=== PATIENT | female | born 1955 | race Caucasian/White ===

== ENCOUNTER 2022-02-22 02:41 | Emergency (ER) | payer MEDICARE, SELFPAY ==
[2022-02-22 02:42] VITALS: BP 160/77; PULSE 105; RESP 18; TEMP 35.7; O2SAT 98; BMI 29.9
--- NOTE | 2022-02-22 02:47 | EX.ED.DYSGE1 ---
HPI History of Present Illness Chief Complaint: Allergic Reaction Informant: patient Narrative Narrative: 2 weeks ago the patient stated that she received numerous bug bites to her lower legs. She states that she was cleaning out her rental house. States that she was using a lot of chemicals but she does not normally use paints. She also was doing a lot of yard work. Last Monday she went to her primary care doctor because she began to develop a lot of itching and her hands were swollen. She was placed on prednisone taper. She states that now she is at the end of the taper and her symptoms are returning. She has tried some Benadryl without relief. She denies any difficulty swallowing or breathing. PFSH PFSH Medical History no medical history Home Medications prednisone 20 mg tablet See Rx Instructions .Route .COMPLEX #24 TABLETS 02/22/22 [Rx Last Taken Unknown] Allergy/AdvReac Type Severity Reaction Status Date / Time Penicillins [PCN] Allergy Shortness Verified 02/22/22 02:44 of breath Social History Smoking Status: Never smoker ROS ROS ED Constitutional Constitutional ED: Denies chills or weight loss Eyes Eyes: Denies change in vision or diplopia ENT ENT ED: Denies ear pain, rhinorrhea or sore throat Cardiovascular Cardiovascular: Denies chest pain, orthopnea, palpitations or racing heartbeat Respiratory/Chest Respiratory/Chest: Denies cough, dyspnea or orthopnea Gastrointestinal Gastrointestinal: Denies abdominal pain, diarrhea, nausea or vomiting Genitourinary Genitourinary ED: Denies dysuria, hematuria or urinary frequency Musculoskeletal Musculoskeletal: Denies arthralgias or myalgias Integumentary Reports rash and other Details: itching ; Denies abscess Neurologic Neurologic: Denies headache(s) or weakness Psychiatric Psychiatric: Denies anxiety, depression, suicidal ideation or suicidal thoughts Endocrine Endocrinology: Denies polydipsia, polyphagia or polyuria Allergic/Immunologic Allergic/Immunologic ED: Denies mouth swelling, tongue swelling or urticaria EXAM Physical Exam Const Vital Signs: 02/22/22 02:42 Temperature 96.3 F L Temperature Source Temporal Pulse Rate 105 H Respiratory Rate 18 Blood Pressure 160/77 H Blood Pressure Mean 104 Pulse Ox 98 Positive well nourished and well developed General Appearance ED: well developed HEENT Reports normocephalic, head/scalp atraumatic and moist mucous membranes Eyes PERRL and EOMs intact bilaterally Neck no lymphadenopathy, supple and no JVD Resp normal respiratory effort and clear to auscultation bilaterally Cardio regular rate, regular rhythm and no murmurs GI normal to inspection, nondistended, normoactive bowel sounds and non-tender Palpation: soft Back/Spine no CVA tenderness and normal ROM Extremity normal to inspection General Extremety ED: Negative for edema General Extremity: Negative for edema Neuro oriented x3 and CN's II-XII intact bilaterally Sensorium / Orientation: alert Motor Exam: strength 5/5 throughout Psych mental status grossly normal Mood & Affect: Negative for depressed or tearful Skin no wounds Skin Narrative: OurThere is a dry skin like rash of the bilateral hands. There is some mild erythema around the neck. Healing bug bites to the distal lower extremities. MDM MDM MDM Narrative Medical decision making narrative: I discussed with the patient to add in some Pepcid. We talked about doing a shot of Kenalog but she would prefer some additional prednisone so we will write her that on a tapering dose. Discharge Plan Triage Chief Complaint: Allergic Reaction ED Provider: Freedom Torres Dx/Rx/DC Orders Clinical Impression: Allergic reaction, Itching Instructions: ED Allergic Reaction Local Other Prescriptions: New prednisone 20 mg tablet See Rx Instructions .ROUTE .COMPLEX Qty: 24 0RF Rx Instructions: 3 tabs p.o. daily days 1 through 4, then 2 tabs p.o. daily days 5 through 8, then 1 tab p.o. daily day 9 through 12 Primary Care Provider: Edy Zavala Referrals: Edy Zavala MD [Primary Care Provider] - As Needed Disposition Disposition: Home, Self Care
[2022-02-22] MEDS: predniSONE 20 MG Tablet 60 MG PO (03:10)
[2022-02-22] MEDS: Famotidine 20 MG Tablet 40 MG PO (03:10)
== END 2022-02-22 03:15 | disposition home or self-care (01) ==
PROVIDERS: Emergency Provider Emergency Medicine; PCP Family Medicine; Visit Provider Emergency Medicine
DX: T78.40XA Allergy, unspecified, initial encounter (principal)
CPT/HCPCS: 99283

== ENCOUNTER 2023-01-03 20:03 | Emergency (ER) | payer MEDICARE, SELFPAY ==
[2023-01-03 20:04] VITALS: BP 141/106; PULSE 90; RESP 15; TEMP 36.4; O2SAT 99; BMI 31.1
--- NOTE | 2023-01-03 20:51 | EDS_ITS ---
HPI History of Present Illness Chief Complaint: Eye Problem Informant: patient and spouse/S.O. Narrative Narrative: 67-year-old female presenting to the emergency department with the chief complaint of bilateral eye itching and drainage. Symptoms have been present for the past several weeks. She has a hard contact lens wear has not worn them for the past several days. Last week she saw a nurse practitioner who placed her on prednisone for burst dosing. She states she has also been using some Visine drops. She thinks the prednisone made some difference but not much. She denies crusting of the eyelashes in the morning. No significant sneezing or coughing or rhinorrhea. No fevers. No significant eye pain. No foreign body sensation. Vision has not significantly changed [facility] Medical History Allergies Home Medications prednisone 20 mg tablet See Rx Instructions .Route .COMPLEX #24 TABLETS 02/22/22 [Rx Last Taken Unknown] olopatadine 0.1 % eye drops (Pataday Twice Daily Relief) 1 drp EACH EYE BID #5 mL 01/03/23 [Rx Last Taken Unknown] prednisone 10 mg tablet 10 mg PO DAILY #48 TABLETS 01/03/23 [Rx Last Taken Unknown] Allergy/AdvReac Type Severity Reaction Status Date / Time Penicillins [PCN] Allergy Shortness Verified 01/03/23 20:08 of breath Social History Smoking Status: Never smoker ROS ROS ED Constitutional Constitutional ED: Denies chills, fever(s) or weight loss Eyes Eyes: Reports other Details: Eye redness and drainage ; Denies change in vision or diplopia ENT ENT ED: Denies ear pain, rhinorrhea or sore throat Cardiovascular Cardiovascular: Denies chest pain, orthopnea, palpitations or racing heartbeat Respiratory/Chest Respiratory/Chest: Denies cough, dyspnea or orthopnea Gastrointestinal Gastrointestinal: Denies abdominal pain, diarrhea, nausea or vomiting Genitourinary Genitourinary ED: Denies dysuria, hematuria or urinary frequency Musculoskeletal Musculoskeletal: Denies arthralgias or myalgias Integumentary Denies abscess or rash Neurologic Neurologic: Denies headache(s) or weakness Psychiatric Psychiatric: Denies anxiety, depression, suicidal ideation or suicidal thoughts Endocrine Endocrinology: Denies polydipsia, polyphagia or polyuria Allergic/Immunologic Allergic/Immunologic ED: Denies mouth swelling, tongue swelling or urticaria EXAM Physical Exam Const Vital Signs: 01/03/23 20:04 Temperature 97.5 F L Temperature Source Temporal Pulse Rate 90 Respiratory Rate 15 Blood Pressure 141/106 H Blood Pressure Mean 117 Pulse Ox 99 Oxygen Delivery Method Room Air Positive well nourished and well developed General Appearance ED: well developed HEENT Reports normocephalic, head/scalp atraumatic and moist mucous membranes Eyes PERRL and EOMs intact bilaterally Eyes Narrative: There is some mild conjunctival injection. No corneal abrasions noted or ulcers. No foreign body seen with eversion of eyelids. There is no matting of the eyelids. There are no allergic shiners no significant periorbital edema. Neck no lymphadenopathy, supple and no JVD Resp normal respiratory effort and clear to auscultation bilaterally Cardio regular rate, regular rhythm and no murmurs GI normal to inspection, nondistended, normoactive bowel sounds and non-tender Palpation: soft Back/Spine no CVA tenderness and normal ROM Extremity normal to inspection General Extremety ED: Negative for edema General Extremity: Negative for edema Neuro oriented x3 and CN's II-XII intact bilaterally Sensorium / Orientation: alert Motor Exam: strength 5/5 throughout Psych mental status grossly normal Mood & Affect: Negative for depressed or tearful Skin no rashes or lesions noted and no wounds MDM MDM MDM Narrative Medical decision making narrative: Visual acuity checked. Patient will be started on a tapering dose of prednisone as well as Pataday eyedrops. I have advised her not to use her hard contacts until she sees her eye doctor. Would also consider adding in a Zyrtec or Claritin. Discharge Plan Triage Chief Complaint: Eye Problem ED Provider: Freedom Torres Dx/Rx/DC Orders Clinical Impression: Acute allergic conjunctivitis of both eyes Instructions: ED Conjunctivitis, Allergic Prescriptions: New olopatadine [Pataday Twice Daily Relief] 0.1 % drops 1 drp EACH EYE BID Qty: 5 0RF Rx Instructions: separate doses by at least 6-8 hours prednisone 10 mg tablet 10 mg PO DAILY Qty: 48 0RF Rx Instructions: 6 po qd x 3 days, 4 po qd x 3 days, 2 po qd x 3 days, 1 po qd x 3 days No Action prednisone 20 mg tablet See Rx Instructions .ROUTE .COMPLEX Qty: 24 0RF Rx Instructions: 3 tabs p.o. daily days 1 through 4, then 2 tabs p.o. daily days 5 through 8, then 1 tab p.o. 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 Disposition Disposition: Home, Self Care
[2023-01-03 21:06] VITALS: BP 139/79; PULSE 92; RESP 18; O2SAT 96
== END 2023-01-03 21:07 | disposition home or self-care (01) ==
PROVIDERS: Emergency Provider Emergency Medicine; PCP Family Medicine; Visit Provider Emergency Medicine
DX: H10.13 Acute atopic conjunctivitis, bilateral (principal)
CPT/HCPCS: 99283

== ENCOUNTER → 2024-01-10 | Outpatient (CLI) | payer MEDICARE, SELFPAY ==
[2024-01-10 12:16] LABS: Absolute Lymphocyte Count 3.02 X10^3/uL (0.83-4.51); Absolute Neutrophil Count 7.5 X10^3/uL (2.0-7.7); Basophil# 0.06 X10^3/uL; Basophil% 0.5 % (0-1); Eosinophil# 0.04 X10^3/uL; Eosinophils% 0.4 % (0-5); Hematocrit 46.5 % (37-47); Hemoglobin 14.8 g/dL (12.0-15.0); Lymphocyte # 3.02 X10^3/ul (0.83-4.51); Lymphocyte % 26.8 % (19-41); Mean Corp Hgb Conc 31.8 g/dL (32-36); Mean Corpuscular Hgb 27.9 pg (27.0-32.0); Mean Corpuscular Volume 87.7 fL (81-99); Mean Platelet Vol. 10.8 fl (6.2-12.0); Monocyte# 0.58 X10^3/uL; Monocyte% 5.2 % (0-10); NRBC Flagged by Analyzer 0 % (0-5); Neutrophil # 7.53 X10^3/uL (2.7-7.7); Neutrophil % 66.8 % (47-70); Platelet Count 402 K/mm3 (150-450); RBC Distribution Width CV 14.1 % (11.6-14.6); RBC Distribution Width SD 45.4 fl (35.1-43.9); White Blood Count 11.3 K/mm3 (4.4-11.0)
[2024-01-10 13:11] LABS: ALB/GLOB Ratio 0.8 RATIO (0.9-2.4); AST(SGOT) 25 U/L (15-37); Alanine Aminotransfer ALT/SGPT 45 U/L (13-56); Albumin, Serum 3.7 g/dL (3.2-5.0); Alkaline Phosphatase 134 U/L (45-117); Anion Gap 7 (5-15); BUN 20 mg/dL (7-18); BUN/Creat Ratio 27.3 RATIO (10-20); Calcium,Total 10.7 mg/dL (8.5-10.1); Chloride 106 mmol/L (98-107); Cholesterol 205 mg/dL (200); Creatinine, Serum 0.73 mg/dL (0.55-1.02); EST Glomerular Filtration Rate 84 mL/min (>60); Est Glom Filt Rate - Afr Amer 102 mL/min (>60); Globulin 4.4 g/dL (2.2-4.2); Glucose 117 mg/dL (74-106); High Density Lipoprotein 76 mg/dL; Potassium 3.9 mmol/L (3.5-5.1); Protein, Total 8.1 g/dL (6.4-8.2); Sodium Level 140 mmol/L (136-145); T4 Free Direct 1.12 ng/dL (0.76-1.46); Triglycerides 37 mg/dL; Very Low Density Lipoprotein 7 mg/dL (5-40)
[2024-01-11 12:09] LABS: Hemoglobin A1c 5.7 % (3.8-5.6)
[2024-01-11 12:15] LABS: PTHIN 55.3 pg/mL (18.4-80.1)
[2024-01-11 17:12] LABS: Anti-Thyroglobulin AB < 1.0 IU/mL (0.0-0.9); Thyroglobulin, Serum Qt. 44.9 ng/mL (1.5-38.5); Thyroid Peroxidase AB 9 IU/mL (0-34)
[2024-01-22 15:32] LABS: PROEL- A/G Ratio 1.2 (0.7-1.7); PROEL- Albumin 3.8 g/dL (2.9-4.4); PROEL- Alpha-1 Globulin 0.2 g/dL (0.0-0.4); PROEL- Alpha-2 Globulin 0.9 g/dL (0.4-1.0); PROEL- Beta Globulin 1.2 g/dL (0.7-1.3); PROEL- Gamma Globulin 1.1 g/dL (0.4-1.8); PROEL- Globulin, Total 3.3 g/dL (2.2-3.9); PROEL- TOTAL PROTEIN 7.1 g/dL (6.0-8.5); PROEL-M-Spike Not Observed g/dL (Not Observed)
== END | disposition home or self-care (01) ==
LOC: MFPLAB 10:06
PROVIDERS: PCP Family Medicine; Visit Provider Family Medicine
DX: E04.1 Nontoxic single thyroid nodule (principal); E88.09 Other disorders of plasma-protein metabolism, not elsewhere classified; R73.9 Hyperglycemia, unspecified; E83.52 Hypercalcemia
CPT/HCPCS: 36415; 80053; 80061; 83036; 83970; 84165; 84432; 84439; 84443; 85025; 86376; 86800

== ENCOUNTER → 2024-01-15 | Outpatient (CLI) | payer MEDICARE, SELFPAY ==
--- NOTE | 2024-01-15 12:20 | US_ITS ---
EXAM: US SOFT TISSUES HEAD AND NECK, THYROID CLINICAL INDICATION: NODULE TECHNIQUE: Cullen-scale and color doppler imaging was performed of the thyroid gland. COMPARISON: No relevant prior studies available. FINDINGS: LEFT THYROID LOBE: The left thyroid lobe measures 4.3 x 2.2 x 1.9 cm. There is a 2.6 cm left thyroid nodule. This nodule is solid or almost completely solid, hyperechoic or isoechoic, [id number], smoothly marginated and contains no echogenic foci. TI-RADS points: 3. TI-RADS category: TR3. This nodule is mildly suspicious. Recommend FNA evaluation. RIGHT THYROID LOBE: The right thyroid lobe measures 5.6 x 2.4 x 2.2 cm. There is a 1.4 cm right thyroid nodule. This nodule is solid or almost completely solid, very hypoechoic, [id number], smoothly marginated and contains microcalcifications. TI-RADS points: 6. TI-RADS category: TR4. This nodule is moderately suspicious. Recommend follow-up thyroid ultrasounds at 1, 2, 3 and 5 years. There is a 1.5 cm right thyroid nodule. This nodule is solid or almost completely solid, hyperechoic or isoechoic, [id number], smoothly marginated and contains no echogenic foci. TI-RADS points: 3. TI-RADS category: TR3. This nodule is mildly suspicious. Recommend follow-up thyroid ultrasounds at 1, 3 and 5 years. There is a 1.4 cm right thyroid nodule. This nodule is solid or almost completely solid, hyperechoic or isoechoic, [id number], ill-defined and contains no echogenic foci. TI-RADS points: 3. TI-RADS category: TR3. This nodule is mildly suspicious but no FNA or follow-up is necessary given the small size of this nodule. ISTHMUS: The thyroid isthmus measures 0.3 cm. No thyroid nodules are present. US/Thyroid IMPRESSION: Multiple bilateral thyroid nodules. The thyroid nodule in the left thyroid lobe is mildly suspicious. Based on size criteria, recommend FNA of this nodule. Otherwise, the absence of definitive management, recommend follow-up ultrasound at 1, 2, 3, and 5 years. Electronically Signed: Rodger Manzo DO at 21:30 EDT ,
== END | disposition home or self-care (01) ==
PROVIDERS: PCP Family Medicine; Referring Provider Family Medicine; Visit Provider Family Medicine
DX: Z12.31 Encounter for screening mammogram for malignant neoplasm of breast (principal); Z78.0 Asymptomatic menopausal state; E04.1 Nontoxic single thyroid nodule
CPT/HCPCS: 76536

== ENCOUNTER → 2024-01-19 | Outpatient (CLI) | payer MEDICARE, SELFPAY ==
[2024-01-19 12:22] LABS: Ionized Calcium Order ORDER TUBE
[2024-01-19 15:49] LABS: Vitamin D,25 Hydroxy 104.9 ng/mL
[2024-01-19 15:52] LABS: ALB/GLOB Ratio 0.8 RATIO (0.9-2.4); AST(SGOT) 29 U/L (15-37); Alanine Aminotransfer ALT/SGPT 49 U/L (13-56); Albumin, Serum 3.7 g/dL (3.2-5.0); Alkaline Phosphatase 131 U/L (45-117); Anion Gap 5 (5-15); BUN 10 mg/dL (7-18); BUN/Creat Ratio 14.6 RATIO (10-20); Calcium,Total 10.8 mg/dL (8.5-10.1); Chloride 106 mmol/L (98-107); Creatinine, Serum 0.69 mg/dL (0.55-1.02); EST Glomerular Filtration Rate 91 mL/min (>60); Est Glom Filt Rate - Afr Amer 110 mL/min (>60); Globulin 4.4 g/dL (2.2-4.2); Glucose 96 mg/dL (74-106); Potassium 3.8 mmol/L (3.5-5.1); Protein, Total 8.1 g/dL (6.4-8.2); Sodium Level 140 mmol/L (136-145)
== END | disposition home or self-care (01) ==
LOC: MFPLAB 11:20
PROVIDERS: PCP Family Medicine; Visit Provider Family Medicine
DX: E83.52 Hypercalcemia (principal)
CPT/HCPCS: 36415; 80053; 82306; 84165

== ENCOUNTER → 2024-01-29 | Outpatient (CLI) | payer MEDICARE, SELFPAY ==
[2024-01-29 18:25] LABS: Anion Gap 6 (5-15); BUN 11 mg/dL (7-18); BUN/Creat Ratio 15.6 RATIO (10-20); Calcium,Total 10.6 mg/dL (8.5-10.1); Chloride 107 mmol/L (98-107); EST Glomerular Filtration Rate 88 mL/min (>60); Est Glom Filt Rate - Afr Amer 106 mL/min (>60); Glucose 110 mg/dL (74-106); Potassium 3.9 mmol/L (3.5-5.1); Sodium Level 140 mmol/L (136-145)
== END | disposition home or self-care (01) ==
PROVIDERS: PCP Family Medicine; Referring Provider Family Medicine; Visit Provider Family Medicine
DX: E87.1 Hypo-osmolality and hyponatremia (principal)
CPT/HCPCS: 36415; 80048